=== PATIENT | female | born 1980 | race Caucasian/White ===

== ENCOUNTER 2017-08-15 23:29 | Emergency (ER) | payer OTHER, BC ==
[2017-08-16 00:22] LABS: BASOPHILS % (AUTO) 2 % (0-3); EOSINOPHILS % (AUTO) 2 % (0-9); HEMATOCRIT 45 % (35-47); HEMOGLOBIN 15.9 gm/dl (12.0-15.5); LYMPHOCYTES % (AUTO) 35.9 % (10-50); MEAN CORPUSCULAR HEMOGLOBIN 28.3 pg (27.0-32.0); MONOCYTES % (AUTO) 6.7 % (0-12); NEUTROPHILS % (AUTO) 53.5 % (37-80)
[2017-08-16] MEDS ORDERED: ACETAMINOPHEN 500 MG 500 MG TAB ONE (00:31)
[2017-08-16 00:35] LABS: ALBUMIN 3.6 gm/dl (3.4-5.0); ALKALINE PHOSPHATASE 89 IU/L (46-116); ALT 33 IU/L (14-63); AST 12 IU/L (15-37); BILIRUBIN,TOTAL 0.3 mg/dl (0.2-1.0); BLOOD UREA NITROGEN 10 mg/dl (7-18); CALCIUM 9.1 mg/dl (8.5-10.1); CARBON DIOXIDE 24.3 mEq/L (21-32); CHLORIDE 104 mMol/L (98-107); CREATININE 0.61 mg/dl (0.60-1.00); GLOM FILT RATE 109 mL/min (>60); GLUCOSE 205 mg/dl (74-106); POTASSIUM 4.1 mMol/L (3.5-5.1); SODIUM 140 mMol/L (136-145); TOTAL PROTEIN 7.1 gm/dl (6.4-8.2)
[2017-08-16] MEDS ORDERED: ACETAMINOPHEN 500 MG 500 MG TAB PO ONE (00:35)
[2017-08-16 00:38] LABS: ACETAMINOPHEN < 2 ug/ml (10-30); ALCOHOL < 0.003 gm/dl (0.000-0.08)
[2017-08-16 00:39] LABS: MEAN CORPUSCULAR VOLUME 81 fL (81-99)
[2017-08-16 00:55] LABS: AMPHETAMINES POSITIVE (NEGATIVE); BARBITUATES NEGATIVE (NEGATIVE); BENZODIAZEPINES NEGATIVE (NEGATIVE); CANNABINOL(THC) NEGATIVE (NEGATIVE); COCAINE(COC) NEGATIVE (NEGATIVE); METHADONE NEGATIVE (NEGATIVE); METHAMPHETAMINES NEGATIVE (NEGATIVE); OPIATES(OP13) NEGATIVE (NEGATIVE); OXYCODONE(OXY) NEGATIVE (NEGATIVE); PROPOXYPHENE(PPX) NEGATIVE (NEGATIVE); TRICYCLIC ANTIDEPRESSANTS NEGATIVE (NEGATIVE)
[2017-08-16] MEDS ORDERED: CYCLOBENZAPRINE 10 MG TAB PO ONE (01:07)
[2017-08-16] MEDS ORDERED: KETOROLAC TROMETHAMINE 30 MG/ML SOL IM ONE (01:08)
[2017-08-16] MEDS ORDERED: CYCLOBENZAPRINE 10 MG TAB ONE (01:10)
[2017-08-16] MEDS ORDERED: KETOROLAC TROMETHAMINE 30 MG/ML SOL ONE (01:10)
[2017-08-16 03:06] VITALS: BP 119/76; PULSE 83; RESP 19; TEMP 98.3; O2SAT 94
== END 2017-08-16 03:00 | disposition home or self-care (01) | DRG 552 ==
LOC: ED 23:29
DX: M54.2 Cervicalgia (principal); M62.838 Other muscle spasm; V43.62XA Car passenger injured in collision with other type car in traffic accident, initial encounter; F15.90 Other stimulant use, unspecified, uncomplicated; R40.2362 Coma scale, best motor response, obeys commands, at arrival to emergency department; R40.2142 Coma scale, eyes open, spontaneous, at arrival to emergency department; R40.2252 Coma scale, best verbal response, oriented, at arrival to emergency department
CPT/HCPCS: 70450; 72125; 80053; 80305; 80307; 85025; 99285; J1885; A9270-GY